=== PATIENT | male | born 1955 | race Caucasian/White ===

== ENCOUNTER 2024-07-14 09:29 | Outpatient (AMB) | payer OTHER, SELFPAY ==
--- NOTE | 2024-07-14 09:40 | MHC.PC.OV ---
Vital Signs 07/14/24 09:40 07/14/24 09:44 Height 5 ft 8 in Weight 174 lb 6.4 oz BMI 26.5 BP 170/86 H Blood Pressure Location Lt brachial Lt brachial Position Sitting Sitting Respiration 20 Pulse 100 Pulse Source Pulse Oximeter Pulse Oximeter Temp 97.4 F Temp Source Oral Oral Pulse Oximetry (%) 99 Oxygen Delivery Method Room Air Room Air Intake Visit Reasons: WHEAT FARMER-PE Intake Note: Patient is a new patient here to establish care. Transferring care from [facility] in [facility]. Medical records have been requested and have been received. 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 per policy Accompanied by: Son-In-Law Allergies No Known Allergies [No Known Allergies*] Allergy (Verified 07/14/24 10:01) Medication List - Last Reconciled 07/14/24 by VAIBHAV Melissa amlodipine 10 mg PO DAILY aspirin 81 mg PO DAILY atorvastatin 40 mg PO DAILY insulin glargine (Lantus Solostar U-100 Insulin) 24 units subcut QPM metoprolol tartrate 100 mg PO BID omeprazole 20 mg PO DAILY pen needle, diabetic As directed Tobacco use date assessed: 07/14/24 Fall risk assessment: No Falls in past year Last assessed Fall Risk: 07/14/24 Dental Screening Dental Screen Date: 07/14/24 Did you have a dental visit in the last 12 months?: Yes Did you have a dental problem in the last 6 months where you did not have access to dental care?: No Was dental information given to patient?: Patient has dentist HPI WHEAT FARMER-PE HPI Details The patient is a 69-year-old male presenting to establish care. His last PCP was at [facility] in [place], [place]. States that he has not seen a primary provider in a while. He is here for management of diabetes and hypertension. He has a chronic history of significant elevations in blood pressure and an understanding that these readings were manageable despite being substantially high. There is substantial dietary salt intake and challenges with regular follow-up and adherence to antihypertensive medication. He experienced confusion regarding insulin dosing and ceased blood glucose monitoring due to equipment failure. The patient describes symptoms suggesting diabetic neuropathy with numbness in his feet. A prior indication of carotid blockage exists but lacks subsequent evaluation or subsequent surgical intervention. Chronic tobacco use adds risk for respiratory and cardiovascular issues. He reports dizziness and shortness of breath, possibly related to respiratory issues, although no respiratory diagnoses like COPD were confirmed. His gastroesophageal reflux disease treatment is impeded by incorrect medication timing. States that he takes the omeprazole after eating. Past family history reveals colon cancer, and although the colonoscopy was recent, results or next steps were not communicated. [facility] Medical History (Updated 07/18/24 @ 01:57 by VAIBHAV Melissa) GERD (gastroesophageal reflux disease) HLD (hyperlipidemia) HTN (hypertension) Diabetes mellitus Surgical History Hx of varicose vein ligation Hx of hemorrhoidectomy Family History Father Colon cancer Mother Diabetes Brother Family history of substance abuse Social History Household Members: Spouse Housing: Apartment Alcohol intake: current Alcohol intake frequency: a few times a month Patient Tobacco Use Status: Current everyday Tobacco user Tobacco use type: Cigarette Cigarette Packs Per Day: 0.5 Cigarettes Per Day: 10 e-Cigarette/Vaping Use: Never Used service: No Current occupational status: retired Cognitive needs: No Hearing needs: No Vision needs: Yes (Reading glasses) Questionnaire PHQ-9 Over the last 2 weeks, how often have you been bothered by any of the following problems? 1. Little interest or pleasure in doing things: more than half the days 2. Feeling down, depressed, or hopeless: not at all 3. Trouble falling or staying asleep, or sleeping too much: not at all 4. Feeling tired or having little energy: nearly every day 5. Poor appetite or overeating: not at all 6. Feeling bad about yourself - or that you are a failure or have let yourself or your family down: not at all 7. Trouble concentrating on things, such as reading the newspaper or watching television: not at all 8. Moving or speaking so slowly that other people could have noticed. Or the opposite - being so fidgety or restless that you have been moving around a lot more than usual: nearly every day 9. Thoughts that you would be better off or of hurting yourself in some way: not at all Total score: 8 Depression Screening Interpretation: Positive Depression Screening Done: Yes 29720 - PHQ-9 Billing: Yes Source: Developed by Drs. Truong Rodriguez, Lay Uribe, Horace Castle and colleagues, with an educational fili from [employer]. Thrive Questionnaire Date Thrive assessed: 07/14/24 I am a: Patient What is your living situation today?: I have a steady place to live Within the past 12 months, did the food you bought not last and you didn't have the money to get more?: Never true Within the past 12 months, did you worry whether your food would run out before you got money to buy more?: Sometimes True Do you have trouble paying for medicines?: No Do you have trouble getting transportation to medical appointments?: No Do you have trouble paying your heating and electricity bill?: Yes Do you have trouble taking care of your child, family member or friend?: No Do you have trouble with day-to-day activities such as bathing, preparing meals, shopping, managing finances, etc.?: No Are you currently unemployed and looking for a job?: No Are you interested in more education?: No Please select the resources that you would like help with: Food, Paying for medicine and Utilities Currently or been in a relationship where the following occur: No concerns reported THRIVE Score: 2 AUDIT C Alcohol Use Questionnaire (AUDIT-C) 1. How often do you have a drink containing alcohol?: Monthly or less 2. How many drinks containing alcohol do you have on a typical day when you are drinking?: 1 or 2 3. How often do you have six or more drinks on one occasion?: Never Total Score: 1 Score Reviewed/Action Taken: No MARYLIN-7 AMB Questionnaire MARYLIN-7 Date MARYLIN - 7 assessed: 07/14/24 Feeling nervous, anxious, or on edge: 1 = Several days Not being able to stop or control worryin = Not at all Worrying too much about different things: 1 = Several days Trouble relaxin = Not at all Being so restless that it is hard to sit still: 0 = Not at all Becoming easily annoyed or irritable: 1 = Several days Feeling afraid as if something awful might happen: 0 = Not at all Total MARYLIN-7 score (0-4 normal; 5-9 mild; 10-14 moderate; 15-21 severe): 3 Source: Developed by Drs. Truong Rodriguez, Lay Uribe, Horace Castle and colleagues, with an educational fili from [employer]. MARYLIN-7 Assessment Billing MARYLIN-7 Assessment Tool: MARYLIN-7 Assessment 57457 Review of Systems Const Denies headache(s) Eyes Denies loss of vision ENT Denies vertigo, Reports dizziness, Denies headache(s) and Denies sore throat Card Denies chest pain, Denies leg edema, Denies lightheadedness and Reports dyspnea on exertion Resp Denies cough, Denies hemoptysis, Reports dyspnea on exertion and Denies wheezing GI Denies abdominal pain, Denies melena, Denies constipation, Reports heartburn, Denies diarrhea and Denies vomiting Denies dysuria, Denies urinary frequency and Denies urinary urgency Musc Denies arthralgias, Denies joint swelling, Denies numbness and Denies tingling Neuro Denies Abnormal speech present, Denies behavioral changes, Denies vertigo, Reports dizziness, Denies headache(s), Denies loss of vision, Denies memory loss, Denies numbness and Denies tingling Psych Denies anxiety, Denies behavioral changes, Denies depression, Denies memory loss and Denies panic attacks Azael/Lymph Denies easy bleeding and Denies easy bruising Aller/Immun Denies wheezing Physical exam (Primary Care) Vital Signs: Last Vital Signs Temp 97.4 F 07/14/24 09:44 Pulse 100 07/14/24 09:44 Resp 20 07/14/24 09:44 BP 170/86 H 07/14/24 09:44 Pulse Ox 99 07/14/24 09:44 Oxygen Delivery Method Room Air 07/14/24 09:44 BMI result Body Mass Index 26.5 Tobacco/Smoking Status: Tobacco use Status Tobacco use date assessed 07/14/24 07/14/24 09:58 Patient Tobacco Use Status Current everyday Tobacco 07/14/24 09:58 Tobacco use type Cigarette 07/14/24 09:58 e-Cigarette/Vaping Use Never Used 07/14/24 09:58 PHQ-9: PHQ-9 Score PHQ-9: Total score 8 07/18/24 00:59 Depression Screening Interpretation: Positive Thrive Assessment: Date of Thrive Assessment Date Thrive assessed 07/14/24 07/14/24 09:58 Currently or been in a relationship where the following occur: No concerns reported Const General: healthy appearing, no acute distress, alert and awake Nutritional Appearance: well nourished Orientation/consciousness: oriented to person, oriented to place and oriented to time HENMT Ears: TM's normal bilaterally General nose exam: Normal nasal mucous membranes and turbinates present Eyes Conjunctivae: conjunctivae normal Sclerae: sclerae normal Pupils: Equal, round and reactive pupils present Neck Neck: Yes no lymphadenopathy and Yes no JVD Thyroid: Thyroid normal Carotids: no bruits Resp Effort & Inspection: normal respiratory effort and not tachypneic Auscultation: no crackles, no rales, no rhonchi and no wheezes Cardio Rate: regular rate Rhythm: regular rhythm Heart sounds: no murmurs and normal S1 and S2 GI Palpation (GI): Soft to palpation, nontender, no hepatomegaly and no splenomegaly Auscultation: normal bowel sounds Skin General skin exam: no rashes or lesions noted and dry skin Neuro General: oriented to person, oriented to place and oriented to time Cranial nerves: Yes Equal, round and reactive pupils present Speech: No Abnormal speech present Gait exam (Neuro): Normal gait present Motor exam (neuro): no tremor noted Extrem Right upper extremity: full ROM Left upper extremity: full ROM Right lower extremity: full ROM; no edema Left lower extremity: full ROM; no edema Psych Mental Status: mental status grossly normal Speech and movement: Normal speech and movement present Affect: normal affect Attitude: cooperative Thought process: Normal thought process present Coding Level of Care Code New Pt Level 4 (75211) Diagnoses Hypertension, unspecified type I10 Hypertension type: unspecified Hyperlipidemia, unspecified hyperlipidemia type E78.5 Hyperlipidemia type: unspecified Bilateral carotid artery stenosis I65.23 Shortness of breath R06.02 Dizziness R42 Type 2 diabetes mellitus with diabetic neuropathy, unspecified whether halfway insulin use E11.40 Diabetes mellitus complication detail: with unspecified neuropathy Diabetes mellitus complication status: with neurologic complications Diabetes mellitus superintendent container terminal insulin use: unspecified halfway insulin use status Diabetes mellitus type: type 2 Gastroesophageal reflux disease, unspecified whether esophagitis present K21.9 Esophagitis presence: esophagitis presence not specified Smoker F17.200 Additional Codes MARYLIN-7 Assessment Billing - MARYLIN-7 Assessment Tool: MARYLIN-7 Assessment 48706 ([id number]) PHQ-9 - 19886 - PHQ-9 Billing: Yes ([id number]) Time Spent (min) 41 Assessment & Plan Assessment & Plan (1) HTN (hypertension): Code(s): I10 - Essential (primary) hypertension Category: Medical Qualifiers: Hypertension type: unspecified Qualified Code(s): I10 - Essential (primary) hypertension Plan: Blood pressure elevated in office-unclear med compliance Reinforced low-salt diet Continue metoprolol tartrate 100 mg b.i.d. and amlodipine 10 mg daily (2) HLD (hyperlipidemia): Code(s): E78.5 - Hyperlipidemia, unspecified Category: Medical Qualifiers: Hyperlipidemia type: unspecified Qualified Code(s): E78.5 - Hyperlipidemia, unspecified Plan: LDL was 73 in-hospital Reinforced low-cholesterol diet Continue atorvastatin 40 mg daily (3) Bilateral carotid artery stenosis: Code(s): I65.23 - Occlusion and stenosis of bilateral carotid arteries Category: Medical Plan: The patient was referred to Devon Koo MD (Vascular Surgeon) by [facility]. He was instructed to call and make an appointment for a new patient visit. Continue aspirin 81 mg daily and atorvastatin 40 mg daily (4) Shortness of breath: Code(s): R06.02 - Shortness of breath Category: Medical Plan: Unclear if this is related to an underlining respiratory disease, given the patient smoking history. Complaining of dizziness particularly with turning his head in certain position. An electrocardiogram was recommended in the ER but the patient wanted to be discharged home, so they opted for outpatient completion. Electrocardiogram was ordered (5) Dizziness: Code(s): R42 - Dizziness and giddiness Category: Medical Plan: Same as above (6) Diabetes mellitus: Code(s): E11.9 - Type 2 diabetes mellitus without complications Category: Medical Qualifiers: Diabetes mellitus complication detail: with unspecified neuropathy Diabetes mellitus complication status: with neurologic complications Diabetes mellitus superintendent container terminal insulin use: unspecified superintendent container terminal insulin use status Diabetes mellitus type: type 2 Qualified Code(s): E11.40 - Type 2 diabetes mellitus with diabetic neuropathy, unspecified Plan: A1c in office a 7% Reinforced low sugar/carbohydrate diet and activity as tolerated and Continue Lantus 24 units at bedtime (7) GERD (gastroesophageal reflux disease): Code(s): K21.9 - Gastro-esophageal reflux disease without esophagitis Category: Medical Qualifiers: Esophagitis presence: esophagitis presence not specified Qualified Code(s): K21.9 - Gastro-esophageal reflux disease without esophagitis Plan: Do not eat meals or drink carbonated beverages within 3 hr of bedtime Decrease the amount of fried, fatty, and spicy foods to decrease gastric acid production Raise the head of the bed using 4 to 6-inch blocks, especially if nocturnal symptoms are present Lose weight if indicated; avoid tight-fitting clothing, especially around the waist Avoid foods that relax the Lower esophageal sphincter (chocolate, peppermint, high-fat foods etc.,) Take the medication 1st thing in the morning at least half an hour before eating or drinking (8) Smoker: Code(s): F17.200 - Nicotine dependence, unspecified, uncomplicated Category: Social Hx Plan: Counseled on smoking cessation Orders: Orders Vitamin D 25-OH Total 3 Months E11.9 - Type 2 diabetes mellitus without complications, E78.5 - Hyperlipidemia, unspecified, I10 - Essential (primary) hypertension Hemoglobin A1c 3 Months E11.9 - Type 2 diabetes mellitus without complications, E78.5 - Hyperlipidemia, unspecified, I10 - Essential (primary) hypertension CA echo transthoracic complete Today I65.23 - Occlusion and stenosis of bilateral carotid arteries, R06.02 - Shortness of breath, R42 - Dizziness and giddiness Complete Blood Count Auto Diff 3 Months E11.9 - Type 2 diabetes mellitus without complications, E78.5 - Hyperlipidemia, unspecified, I10 - Essential (primary) hypertension Comprehensive [place]. Panel Fast 3 Months E11.9 - Type 2 diabetes mellitus without complications, E78.5 - Hyperlipidemia, unspecified, I10 - Essential (primary) hypertension Lipid Panel 3 Months E11.9 - Type 2 diabetes mellitus without complications, E78.5 - Hyperlipidemia, unspecified, I10 - Essential (primary) hypertension TSH reflex Free T4 3 Months E11.9 - Type 2 diabetes mellitus without complications, E78.5 - Hyperlipidemia, unspecified, I10 - Essential (primary) hypertension UA CC w/rflx Micro + Cult 3 Months E11.9 - Type 2 diabetes mellitus without complications, E78.5 - Hyperlipidemia, unspecified, I10 - Essential (primary) hypertension Microalbumin, Random (w Creat) 3 Months E11.9 - Type 2 diabetes mellitus without complications, E78.5 - Hyperlipidemia, unspecified, I10 - Essential (primary) hypertension
[2024-07-14 09:44] VITALS: BP 170/86; PULSE 100; RESP 20; TEMP 36.3; O2SAT 99; BMI 26.5
== END 2024-07-14 10:38 | disposition home or self-care (01) ==
DX: I10 Essential (primary) hypertension (principal); E11.40 Type 2 diabetes mellitus with diabetic neuropathy, unspecified; E78.5 Hyperlipidemia, unspecified; I65.23 Occlusion and stenosis of bilateral carotid arteries; R06.02 Shortness of breath; R42 Dizziness and giddiness; K21.9 Gastro-esophageal reflux disease without esophagitis; F17.200 Nicotine dependence, unspecified, uncomplicated

== ENCOUNTER → 2024-07-14 09:29 | Outpatient (BNVA) | payer OTHER, SELFPAY | DX: I10 Essential (primary) hypertension (principal); E78.5 Hyperlipidemia, unspecified; I65.23 Occlusion and stenosis of bilateral carotid arteries; R06.02 Shortness of breath; R42 Dizziness and giddiness; E11.40 Type 2 diabetes mellitus with diabetic neuropathy, unspecified; K21.9 Gastro-esophageal reflux disease without esophagitis; F17.210 Nicotine dependence, cigarettes, uncomplicated; Z79.4 Long term (current) use of insulin; Z79.82 Long term (current) use of aspirin; Z79.899 Other long term (current) drug therapy; Z13.30 Encounter for screening examination for mental health and behavioral disorders, unspecified | CPT/HCPCS: 96127 ==

== ENCOUNTER 2024-10-13 11:14 | Outpatient (AMB) | payer OTHER, SELFPAY ==
[2024-10-13 11:25] VITALS: BP 166/90; PULSE 85; RESP 18; TEMP 36.3; O2SAT 95; BMI 27.3
--- NOTE | 2024-10-13 11:25 | MHC.PC.OV ---
Vital Signs 10/13/24 11:25 10/13/24 12:00 Height 5 ft 8 in Weight 179 lb 4 oz BMI 27.3 BP 166/90 H 158/84 H Blood Pressure Location Lt brachial Lt brachial Position Sitting Sitting Respiration 18 Pulse 85 Pulse Source Pulse Oximeter Temp 97.3 F Temp Source Temporal Artery Scan Pulse Oximetry (%) 95 Oxygen Delivery Method Room Air Intake Visit Reasons: DM/HTN/HLD Instructional Developer Required: No Accompanied by: Self / Same As Patient Allergies No Known Allergies (No Known Allergies*) Allergy (Verified 10/13/24 11:34) Tobacco use date assessed: 10/13/24 Fall risk assessment: No Falls in past year Last assessed Fall Risk: 10/13/24 Dental Screening Dental Screen Date: 10/13/24 Did you have a dental visit in the last 12 months?: No Did you have a dental problem in the last 6 months where you did not have access to dental care?: No Was dental information given to patient?: No HPI DM/HTN/HLD HPI Details a1c 7.4% PFSH Medical History GERD (gastroesophageal reflux disease) HLD (hyperlipidemia) HTN (hypertension) Diabetes mellitus Surgical History Hx of varicose vein ligation Hx of hemorrhoidectomy Family History Father Colon cancer Mother Diabetes Brother Family history of substance abuse Social History Household Members: Spouse Housing: Apartment Alcohol intake: current Alcohol intake frequency: a few times a month Patient Tobacco Use Status: Current everyday Tobacco user Tobacco use type: Cigarette Cigarette Packs Per Day: 0.5 Cigarettes Per Day: 10 e-Cigarette/Vaping Use: Never Used service: No Current occupational status: retired Cognitive needs: No Hearing needs: No Vision needs: Yes (Reading glasses) Questionnaire PHQ-9 Over the last 2 weeks, how often have you been bothered by any of the following problems? 1. Little interest or pleasure in doing things: more than half the days 2. Feeling down, depressed, or hopeless: not at all 3. Trouble falling or staying asleep, or sleeping too much: not at all 4. Feeling tired or having little energy: nearly every day 5. Poor appetite or overeating: not at all 6. Feeling bad about yourself - or that you are a failure or have let yourself or your family down: not at all 7. Trouble concentrating on things, such as reading the newspaper or watching television: not at all 8. Moving or speaking so slowly that other people could have noticed. Or the opposite - being so fidgety or restless that you have been moving around a lot more than usual: nearly every day 9. Thoughts that you would be better off or of hurting yourself in some way: not at all Total score: 8 Depression Screening Interpretation: Positive Depression Screening Done: Yes 00330 - PHQ-9 Billing: Yes Source: Developed by Drs. Truong Rodriguez, Lay Uribe, Horace Castle and colleagues, with an educational fili from [employer]. Thrive Questionnaire Date Thrive assessed: 10/13/24 I am a: Patient What is your living situation today?: I have a steady place to live Within the past 12 months, did the food you bought not last and you didn't have the money to get more?: Never true Within the past 12 months, did you worry whether your food would run out before you got money to buy more?: Sometimes True Do you have trouble paying for medicines?: No Do you have trouble getting transportation to medical appointments?: No Do you have trouble paying your heating and electricity bill?: Yes Do you have trouble taking care of your child, family member or friend?: No Do you have trouble with day-to-day activities such as bathing, preparing meals, shopping, managing finances, etc.?: No Are you currently unemployed and looking for a job?: No Are you interested in more education?: No Currently or been in a relationship where the following occur: No concerns reported THRIVE Score: 2 AUDIT C Alcohol Use Questionnaire (AUDIT-C) 1. How often do you have a drink containing alcohol?: Monthly or less 2. How many drinks containing alcohol do you have on a typical day when you are drinking?: 1 or 2 3. How often do you have six or more drinks on one occasion?: Never Total Score: 1 Score Reviewed/Action Taken: No MARYLIN-7 AMB Questionnaire MARYLIN-7 Date MARYLIN - 7 assessed: 10/13/24 Feeling nervous, anxious, or on edge: 1 = Several days Not being able to stop or control worryin = Not at all Worrying too much about different things: 1 = Several days Trouble relaxin = Not at all Being so restless that it is hard to sit still: 0 = Not at all Becoming easily annoyed or irritable: 1 = Several days Feeling afraid as if something awful might happen: 0 = Not at all Total MARYLIN-7 score (0-4 normal; 5-9 mild; 10-14 moderate; 15-21 severe): 3 Source: Developed by Drs. Truong Rodriguez, Lay Uribe, Horace Castle and colleagues, with an educational fili from [employer]. MARYLIN-7 Assessment Billing MARYLIN-7 Assessment Tool: MARYLIN-7 Assessment 53369 Physical exam (Primary Care) Vital Signs: Last Vital Signs Temp 97.3 F 10/13/24 11:25 Pulse 85 10/13/24 11:25 Resp 18 10/13/24 11:25 BP 158/84 H 10/13/24 12:00 Pulse Ox 95 10/13/24 11:25 Oxygen Delivery Method Room Air 10/13/24 11:25 BMI result Body Mass Index 27.3 Tobacco/Smoking Status: Tobacco use Status Tobacco use date assessed 10/13/24 10/13/24 11:31 Patient Tobacco Use Status Current everyday Tobacco 10/13/24 11:31 Tobacco use type Cigarette 10/13/24 11:31 e-Cigarette/Vaping Use Never Used 10/13/24 11:31 PHQ-9: PHQ-9 Score PHQ-9: Total score 8 10/13/24 11:54 Depression Screening Interpretation: Positive Thrive Assessment: Date of Thrive Assessment Date Thrive assessed 10/13/24 10/13/24 11:31 Currently or been in a relationship where the following occur: No concerns reported Results AMB Hemoglobin A1c AMB Hemoglobin A1c 7.4 % Last Edit by Roxie Zavaleta MA on 10/13/24 12:04 Coding Additional Codes MARYLIN-7 Assessment Billing - MARYLIN-7 Assessment Tool: MARYLIN-7 Assessment 57834 ([id number]) PHQ-9 - 42566 - PHQ-9 Billing: Yes ([id number]) Assessment & Plan Assessment & Plan Orders: Orders AMB Hemoglobin A1c Today E11.40 - Type 2 diabetes mellitus with diabetic neuropathy, unspecified
[2024-10-13 12:00] VITALS: BP 158/84
== END 2024-10-13 12:14 | disposition home or self-care (01) ==
LOC: HO.HMCH 11:15
DX: E11.40 Type 2 diabetes mellitus with diabetic neuropathy, unspecified (principal)

== ENCOUNTER → 2024-10-13 11:14 | Outpatient (BNVA) | payer OTHER, SELFPAY | DX: I10 Essential (primary) hypertension (principal); E78.5 Hyperlipidemia, unspecified; R42 Dizziness and giddiness; F17.210 Nicotine dependence, cigarettes, uncomplicated; I65.23 Occlusion and stenosis of bilateral carotid arteries; E11.40 Type 2 diabetes mellitus with diabetic neuropathy, unspecified; K21.9 Gastro-esophageal reflux disease without esophagitis | CPT/HCPCS: 83036; 96127 ==

== ENCOUNTER 2025-01-03 09:22 | Outpatient (AMB) | payer OTHER, SELFPAY ==
[2025-01-03 09:25] VITALS: BP 152/78; PULSE 75; RESP 18; O2SAT 99; BMI 27.4
--- NOTE | 2025-01-03 09:25 | MHC.PC.OV ---
Vital Signs 01/03/25 09:25 01/03/25 09:56 Height 5 ft 8 in Weight 180 lb 6 oz BMI 27.4 BP 152/78 H 160/82 H Blood Pressure Location Lt brachial Lt brachial Position Sitting Sitting Respiration 18 Pulse 75 Pulse Source Pulse Oximeter Temp Source Temporal Artery Scan Pulse Oximetry (%) 99 Oxygen Delivery Method Room Air Intake Visit Reasons: htn/dm/GERD Renal Case Manager Required: No Accompanied by: Self / Same As Patient Allergies No Known Allergies (No Known Allergies*) Allergy (Verified 01/03/25 09:43) Medication List - Last Reconciled 01/03/25 by VAIBHAV Melissa amlodipine 10 mg PO DAILY aspirin 81 mg PO DAILY atorvastatin 40 mg PO DAILY blood sugar diagnostic ([employer] Ultra Test strips) As directed 2 times per day blood-glucose meter ([employer]inance [employer]uch Ultra2 Meter) As directed blood-glucose sensor ([employer]Style David 3 Plus Sensor device) As directed insulin glargine (Lantus Solostar U-100 Insulin) 24 units (0.24 mL) subcut QPM lancets ([employer]ica Safety Lancet) As directed 2 times per day metoprolol tartrate 100 mg PO BID omeprazole 20 mg PO DAILY pen needle, diabetic As directed pen needle, diabetic (Easy Comfort Pen [place]) As directed Inject once a day of Insulin Tobacco use date assessed: 01/03/25 Fall risk assessment: No Falls in past year Last assessed Fall Risk: 01/03/25 Dental Screening Dental Screen Date: 01/03/25 Did you have a dental visit in the last 12 months?: Yes Did you have a dental problem in the last 6 months where you did not have access to dental care?: No Was dental information given to patient?: Patient has dentist HPI htn/dm/GERD HPI Details The patient is a 69-year-old male presenting with dizziness and balance issues. The dizziness and balance issues have been ongoing for a while, with the patient feeling as if he might fall when walking, although the dizziness subsides but the sensation of imbalance persists. The patient underwent a procedure to address carotid artery stenosis, which was expected to improve cerebral circulation, but the symptoms have not significantly improved. The patient also has a history of Type 2 Diabetes Mellitus, currently managed with insulin therapy. Recent lab results indicated an HbA1c level of 7.4%, which is slightly above goal of below 7%. The patient does not have a glucose monitoring device at home, which complicates regular monitoring of blood glucose levels. Hypertension is another concern, with a recent blood pressure reading of 158/84 mmHg, which is elevated. The patient has a history of significantly higher blood pressure readings in the past, which required emergency intervention. The patient has not taken his antihypertensive medication prior to the visit, which may have contributed to the elevated reading. The patient is a smoker, with a history of smoking up to two packs a day, though he has reduced his consumption recently. There was a discussion about the importance of smoking cessation and its impact on overall health, particularly in relation to cardiovascular and respiratory health. [facility] Medical History GERD (gastroesophageal reflux disease) HLD (hyperlipidemia) HTN (hypertension) Diabetes mellitus Surgical History Hx of varicose vein ligation Hx of hemorrhoidectomy Family History Father Colon cancer Mother Diabetes Brother Family history of substance abuse Social History Household Members: Spouse Housing: Apartment Alcohol intake: current Alcohol intake frequency: a few times a month Patient Tobacco Use Status: Current everyday Tobacco user Tobacco use type: Cigarette Cigarette Packs Per Day: 0.5 Cigarettes Per Day: 10 e-Cigarette/Vaping Use: Never Used service: No Current occupational status: retired Cognitive needs: No Hearing needs: No Vision needs: Yes (Reading glasses) Questionnaire PHQ-9 Over the last 2 weeks, how often have you been bothered by any of the following problems? Depression Screening Interpretation: Positive Depression Screening Done: Yes Source: Developed by Drs. Truong Rodriguez, Lay Uribe, Horace Castle and colleagues, with an educational fili from [employer]. Thrive Questionnaire Date Thrive assessed: 07/14/24 I am a: Patient What is your living situation today?: I have a steady place to live Within the past 12 months, did the food you bought not last and you didn't have the money to get more?: Never true Within the past 12 months, did you worry whether your food would run out before you got money to buy more?: Sometimes True Do you have trouble paying for medicines?: No Do you have trouble getting transportation to medical appointments?: No Do you have trouble paying your heating and electricity bill?: Yes Do you have trouble taking care of your child, family member or friend?: No Do you have trouble with day-to-day activities such as bathing, preparing meals, shopping, managing finances, etc.?: No Are you currently unemployed and looking for a job?: No Are you interested in more education?: No Currently or been in a relationship where the following occur: No concerns reported THRIVE Score: 2 MARYLIN-7 AMB Questionnaire MARYLIN-7 Date MARYLIN - 7 assessed: 10/13/24 Source: Developed by Drs. Truong Rodriguez, Lay Uribe, Horace Castle and colleagues, with an educational fili from [employer]. Review of Systems Const Denies headache(s) Eyes Denies loss of vision ENT Denies vertigo, Reports dizziness, Denies headache(s) and Denies sore throat Card Denies chest pain, Denies leg edema and Denies lightheadedness Resp Denies cough, Denies hemoptysis and Denies wheezing GI Denies abdominal pain, Denies melena, Denies constipation, Denies diarrhea and Denies vomiting Denies dysuria, Denies urinary frequency and Denies urinary urgency Musc Denies arthralgias, Denies joint swelling, Reports numbness (BLE) and Reports tingling (BLE) Neuro Denies Abnormal speech present, Denies behavioral changes, Denies vertigo, Reports dizziness, Denies headache(s), Denies loss of vision, Denies memory loss, Reports numbness (BLE) and Reports tingling (BLE) Psych Denies anxiety, Denies behavioral changes, Denies depression, Denies memory loss and Denies panic attacks Azael/Lymph Denies easy bleeding and Denies easy bruising Aller/Immun Denies wheezing Physical exam (Primary Care) Vital Signs: Last Vital Signs Pulse 75 01/03/25 09:25 Resp 18 01/03/25 09:25 BP 160/82 H 01/03/25 09:56 Pulse Ox 99 01/03/25 09:25 Oxygen Delivery Method Room Air 01/03/25 09:25 BMI result Body Mass Index 27.4 Tobacco/Smoking Status: Tobacco use Status Tobacco use date assessed 01/03/25 01/03/25 09:35 Patient Tobacco Use Status Current everyday Tobacco 01/03/25 09:35 Tobacco use type Cigarette 01/03/25 09:35 e-Cigarette/Vaping Use Never Used 01/03/25 09:35 Depression Screening Interpretation: Positive Thrive Assessment: Date of Thrive Assessment Date Thrive assessed 07/14/24 01/03/25 09:35 Currently or been in a relationship where the following occur: No concerns reported Const General: healthy appearing, no acute distress, alert and awake Nutritional Appearance: well nourished Orientation/consciousness: oriented to person, oriented to place and oriented to time HENMT Ears: TM's normal bilaterally General nose exam: Normal nasal mucous membranes and turbinates present Eyes Conjunctivae: conjunctivae normal Sclerae: sclerae normal Pupils: Equal, round and reactive pupils present Neck Neck: Yes no lymphadenopathy and Yes no JVD Thyroid: Thyroid normal Carotids: no bruits Resp Effort & Inspection: normal respiratory effort and not tachypneic Auscultation: no crackles, no rales, no rhonchi and no wheezes Cardio Rate: regular rate Rhythm: regular rhythm Heart sounds: no murmurs and normal S1 and S2 GI Palpation (GI): Soft to palpation, nontender, no hepatomegaly and no splenomegaly Auscultation: normal bowel sounds General: Yes no CVA tenderness Back/Spine/Pelvis Back: no CVA tenderness Skin General skin exam: no rashes or lesions noted and dry skin Neuro General: oriented to person, oriented to place and oriented to time Cranial nerves: Yes CN's II-XII intact bilaterally and Yes Equal, round and reactive pupils present Speech: No Abnormal speech present Gait exam (Neuro): Normal gait present Motor exam (neuro): no tremor noted Romberg Test: Negative Extrem Right upper extremity: full ROM Left upper extremity: full ROM Right lower extremity: full ROM; no edema Left lower extremity: full ROM; no edema Psych Mental Status: mental status grossly normal Speech and movement: Normal speech and movement present Affect: normal affect Attitude: cooperative Thought process: Normal thought process present Results AMB Hemoglobin A1c AMB Hemoglobin A1c 9.1 % Last Edit by RUTH Bunch on 01/03/25 10:03 Results Reviewed Results Reviewed: Laboratory Last Values Hgb A1c (Clinic) 9.1 % (4.0-6.0) H 01/03/25 09:48 Coding Level of Care Code Est Pt Level 4 (54482) Diagnoses Hypertension, unspecified type I10 Hypertension type: unspecified Hyperlipidemia, unspecified hyperlipidemia type E78.5 Hyperlipidemia type: unspecified Type 2 diabetes mellitus with diabetic neuropathy, unspecified whether nursing home insulin use E11.40 Diabetes mellitus complication detail: with unspecified neuropathy Diabetes mellitus complication status: with neurologic complications Diabetes mellitus nursing home insulin use: unspecified nursing home insulin use status Diabetes mellitus type: type 2 Gastroesophageal reflux disease, unspecified whether esophagitis present K21.9 Esophagitis presence: esophagitis presence not specified Dizziness R42 Smoker F17.200 Time Spent (min) 37 Assessment & Plan Assessment & Plan (1) HTN (hypertension): Code(s): I10 - Essential (primary) hypertension Category: Medical Qualifiers: Hypertension type: unspecified Qualified Code(s): I10 - Essential (primary) hypertension Plan: The patient reports a history of elevated blood pressure and was non-adherent with his metoprolol 100 mg BID today. His in-office blood pressure was 160/82 mmhg. The current medication dosage will not be increased at this time, however, losartan 25 mg was added for renal protection. He was instructed to resume taking his medication consistently, and a follow-up appointment in 4 weeks for a blood pressure check was recommended. Reinforced low-salt diet as well. (2) HLD (hyperlipidemia): Code(s): E78.5 - Hyperlipidemia, unspecified Category: Medical Qualifiers: Hyperlipidemia type: unspecified Qualified Code(s): E78.5 - Hyperlipidemia, unspecified Plan: History of elevated cholesterol. Has not completed ordered lipid panel as yet. Encouraged to get this done as soon as possible. Encouraged low-cholesterol diet and activity as tolerated (3) Diabetes mellitus: Code(s): E11.9 - Type 2 diabetes mellitus without complications Category: Medical Qualifiers: Diabetes mellitus complication detail: with unspecified neuropathy Diabetes mellitus complication status: with neurologic complications Diabetes mellitus nursing home insulin use: unspecified nursing home insulin use status Diabetes mellitus type: type 2 Qualified Code(s): E11.40 - Type 2 diabetes mellitus with diabetic neuropathy, unspecified Plan: The patient's A1c of 9.1% indicates uncontrolled diabetes. His insulin prescription was renewed and re-sent to the pharmacy. Jardiance was discussed as a potential addition to his regimen, but a decision was deferred. A low-dose ARB inhibitor will be added for renal protection. Follow-up is scheduled for 3 months. (4) GERD (gastroesophageal reflux disease): Code(s): K21.9 - Gastro-esophageal reflux disease without esophagitis Category: Medical Qualifiers: Esophagitis presence: esophagitis presence not specified Qualified Code(s): K21.9 - Gastro-esophageal reflux disease without esophagitis Plan: REINFORCED DIETARY RESTRICTION Continue omeprazole 20 mg daily (5) Dizziness: Code(s): R42 - Dizziness and giddiness Category: Medical Plan: The plan for managing the patient's dizziness and balance issues involves ensuring adequate hydration and reviewing blood work to rule out any underlying causes such as dehydration or electrolyte imbalances. The patient has not done preordered blood work and was urged to get this done as soon as possible. He was also encouraged to increase his fluids, continues to report low fluids intake. (6) Smoker: Code(s): F17.200 - Nicotine dependence, unspecified, uncomplicated Category: Social Hx Plan: Encouraged smoking cessation Orders: Orders AMB Hemoglobin A1c Today E11.40 - Type 2 diabetes mellitus with diabetic neuropathy, unspecified Vitamin B12 Today R20.0 - Anesthesia of skin, R20.2 - Paresthesia of skin Medications: New insulin glargine (Lantus Solostar U-100 Insulin) 24 units (0.24 mL) subcut QPM 15 mL 3RF E11.9 - Type 2 diabetes mellitus without complications losartan 25 mg PO DAILY 90 tabs 3RF Changed From insulin glargine (Lantus Solostar U-100 Insulin) 24 units (0.24 mL) subcut QPM 15 mL 3RF E11.9 - Type 2 diabetes mellitus without complications To insulin glargine (Lantus Solostar U-100 Insulin) 28 units (0.28 mL) subcut QPM 15 mL 3RF E11.9 - Type 2 diabetes mellitus without complications
[2025-01-03 09:56] VITALS: BP 160/82
== END 2025-01-03 10:23 | disposition home or self-care (01) ==
LOC: HO.HMCH 09:22
DX: I10 Essential (primary) hypertension (principal); E78.5 Hyperlipidemia, unspecified; E11.40 Type 2 diabetes mellitus with diabetic neuropathy, unspecified; K21.9 Gastro-esophageal reflux disease without esophagitis; R42 Dizziness and giddiness; F17.200 Nicotine dependence, unspecified, uncomplicated

== ENCOUNTER → 2025-01-03 09:22 | Outpatient (BNVA) | payer OTHER, SELFPAY | DX: E11.40 Type 2 diabetes mellitus with diabetic neuropathy, unspecified (principal); R42 Dizziness and giddiness; E78.5 Hyperlipidemia, unspecified; I10 Essential (primary) hypertension; K21.9 Gastro-esophageal reflux disease without esophagitis; F17.210 Nicotine dependence, cigarettes, uncomplicated; Z79.4 Long term (current) use of insulin | CPT/HCPCS: 83036 ==

== ENCOUNTER 2025-01-13 11:25 | Outpatient (REF) | payer OTHER, SELFPAY ==
[2025-01-13 12:13] LABS: MANUAL DIFF FLAG NO
[2025-01-13 13:41] LABS: Hematocrit 48.6 % (42.0-52.0); Hemoglobin 16.4 g/dl (14.0-18.0); Imm Gran Abs Auto 0.07 X10*3/uL (0.00-0.03); Imm Gran Pct Auto 0.6 % (0.0-0.4); Lymphocytes Absolute Auto 2.7 X10*3/uL (1.2-4.9); Mean Corpuscular HGB Conc 33.7 g/dl (31.0-36.0); Mean Corpuscular Hemoglobin 29.1 pg (27.0-33.0); Mean Corpuscular Volume 86.2 fL (80.0-98.0); NRBC Abs Auto 0.000 X10*3/uL (0.0-0.012); NRBC Pct Auto 0.0 /100WBC (0.0-0.2); Platelet Count 284 X10*3/uL (160-400); Red Blood Count 5.64 X10*6/uL (4.60-5.80); White Blood Count 11.2 X10*3/uL (4.8-10.8)
[2025-01-13 14:24] LABS: Appearance Urine Clear; Glucose Urine UA Negative (Negative); PH 6.5 (5.0-9.0); Specific Gravity - Urine 1.015 (1.005-1.025)
[2025-01-13 14:59] LABS: Microalbum/Creatinine Ratio Ur 23.8 ug/mg cr (<30)
[2025-01-13 15:03] LABS: Vitamin B12 348 pg/mL (200-900)
[2025-01-13 15:27] LABS: Alanine Aminotransferase 22 U/L (0-40); Albumin Level 4.5 g/dL (3.5-5.0); Alkaline Phosphatase 72 U/L (39-117); Anion Gap 11 (12-20); Aspartate Amino Transferase 24 U/L (5-37); Blood Urea Nitrogen 14 mg/dL (9-16); Calcium 9.7 mg/dL (8.4-10.2); Carbon Dioxide 25 mmol/L (22-29); Chloride 106 mmol/L (96-108); Cholesterol 127 mg/dL (<200); Estimated Glomerular Filt Rate > 60; HDL Cholesterol 38 mg/dL (>40); Potassium 3.6 mmol/L (3.3-5.1); Sodium 138 mmol/L (135-145); Total Protein 7.4 g/dL (6.5-8.0); Triglycerides 121 mg/dL (<150)
== END 2025-01-13 11:26 | disposition home or self-care (01) ==
LOC: HO.LAB 11:25
DX: I10 Essential (primary) hypertension (principal); E78.5 Hyperlipidemia, unspecified; E11.9 Type 2 diabetes mellitus without complications; R20.0 Anesthesia of skin; R20.2 Paresthesia of skin; Z13.21 Encounter for screening for nutritional disorder
CPT/HCPCS: 36415; 80053; 80061; 81003; 82043; 82306; 82570; 82607; 83036; 84443; 85025; 99499